=== PATIENT | male | born 1980 | race Caucasian/White ===

== ENCOUNTER → 2024-08-16 | Day surgery (SDC) | payer OTHER ==
[~2024-08-16] MED LIST: ACETAMINOPHEN 1000 MG/100 ML 100 ML IV ONE; ACETAMINOPHEN-1 EAC4 PO; BUPIVACAINE 0.5%/EPI 30 ML SDV INJ ONE; BUPIVACAINE HCL 0.5% INJ 30 ML VIAL INJ ONE; DEXAMETHASONE SOD PHOS INJ 4 MG/ML SDV ONE; KETOROLAC TROMETHAMINE 30 MG/ML VIAL ONE; LIDOCAINE HCL 2% LOCAL INJ 5 ML SDV VIAL INJ ONE; MIDAZOLAM HCL 2 MG/2 ML VIAL ONE; MUPIROCIN 2% OINT 22 GM TUBE ONE; ONDANSETRON HCL INJ 2MG/ML 2ML 2 MG/ML VIAL ONE; PROPOFOL IV EMULSION 10 MG/ML 20 ML VIAL ONE; PROPOFOL IV EMULSION 50 ML IV ONE
[2024-08-16] MEDS: LACTATED RINGER'S 1,000 ML ONE (11:37)
[2024-08-16 14:24] VITALS: BP 123/83; PULSE 60; RESP 16; O2SAT 100
== END | disposition home or self-care (01) ==
LOC: OR 10:50
PROVIDERS: ATTEND Plastic Surgery
DX: L72.3 Sebaceous cyst (principal)
CPT/HCPCS: 11402; 11403; 11404; 12034; 88304; 93005; J0131; J0690; J1100; J1885; J2003; J2250; J2405; J2704 ×2; J7121